=== PATIENT | female | born 1985 | race Two or more races ===

== ENCOUNTER 2025-02-02 10:09 | Emergency (ER) | payer BC, SELFPAY ==
[2025-02-02 10:22] VITALS: BP 121/82; PULSE 80; RESP 16; TEMP 36.5; O2SAT 98
[2025-02-02 10:24] VITALS: BMI 33.4
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
[2025-02-02] MEDS: ONDANSETRON ODT 4 MG TABRAP PO (11:21)
[2025-02-02] MEDS: HYDROcodone/APAP 5/325 TABLET 1 TAB PO (11:21)
[2025-02-02] MEDS: CYCLObenzaPRINE 5 MG TABLET 10 MG PO (11:21)
== END 2025-02-02 11:30 | disposition home or self-care (01) ==
LOC: SERX 11:21
PROVIDERS: Emergency Provider Emergency Medicine; PCP Registered Nurse Community Health
DX: S29.9XXA Unspecified injury of thorax, initial encounter (principal); V89.2XXA Person injured in unspecified motor-vehicle accident, traffic, initial encounter
CPT/HCPCS: 99283; Q0162; A9270